=== PATIENT | male | born 1980 | race Caucasian/White ===

== ENCOUNTER 2017-06-13 23:00 | Emergency (ER) | payer BC, OTHER ==
[2017-06-13 23:14] VITALS: BP 135/87
--- NOTE | 2017-06-14 01:03 | EDM.PDOC ---
ED HPI GENERAL MEDICAL PROBLEM - General Chief Complaint: Gastrointestinal Problem Stated Complaint: STOMACH PAIN/DIARRHEA Time Seen by Provider: 06/13/17 23:23 Source of Information: Reports: Patient, RN Notes Reviewed - History of Present Illness INITIAL COMMENTS - FREE TEXT/NARRATIVE: 37-year-old male had onset of severe diarrhea this past morning about 10 hours ago. Continues all afternoon and evening. Diarrhea is watery, severe, repetitive. No nausea or vomiting, mild intermittent abdominal discomfort but nothing severe. He was prescribed an antibiotic yesterday for cough fever chills. The cough for about 4-5 days. Fever and chills the last couple of days. Cough was somewhat productive but today has been totally nonproductive. The fever and chills are gone. He had 2 courses of doxycycline yesterday and also 2 doses today. Right Hip Pain Score (Numeric/FACES): 5 - Related Data Allergies Allergy/AdvReac Type Severity Reaction Status Date / Time No Known Allergies Allergy Verified 11/26/14 15:50 Home Meds: Home Meds Doxycycline [Doxycycline Hyclate] 100 mg PO BID 06/13/17 [History] Pseudoephedrine HCl [Sudafed] 60 mg PO DAILY 06/13/17 [History] guaiFENesin/Codeine Phosphate [Cheratussin AC Syrup] 5 ml PO Q4H 06/13/17 [ History] Past Medical History Endocrine/Metabolic History: Reports: Obesity/BMI 30+ Social & Family History - Family History Family Medical History: Noncontributory - Tobacco Use Smoking Status *Q: Never Smoker Years of Tobacco use: 17 Packs/Tins Daily: 1 - Caffeine Use Caffeine Use: Reports: Coffee - Recreational Drug Use Recreational Drug Use: No ED ROS GENERAL - Review of Systems Review Of Systems: See Below Constitutional: Reports: Fever, Chills (Yesterday yesterday) HEENT: Reports: Rhinitis (Now better), Sinus Problem (Mild, improving there's been a lot of nasal and sinus congestion, some drainage), Throat Pain Respiratory: Reports: Cough, Sputum (Occasional, nonproductive today) Cardiovascular: Denies: Chest Pain GI/Abdominal: Reports: Abdominal Pain, Diarrhea (Frequent watery). Denies: Nausea, Vomiting Musculoskeletal: Reports: Other Skin: Denies: Rash (There is been some achiness) Neurological: Reports: Headache (Gone) ED EXAM, GI/ABD - Physical Exam Exam: See Below General Appearance: Alert, No Apparent Distress Eyes: Bilateral: Normal Appearance Nose: Normal Inspection Throat/Mouth: Normal Inspection, Normal Oropharynx Head: No: Facial Swelling Neck: Supple, Full Range of Motion Respiratory/Chest: No Respiratory Distress, Lungs Clear, Normal Breath Sounds. No: Rhonchi, Wheezing Cardiovascular: Regular Rate, Rhythm GI/Abdominal Exam: Soft, Non-Tender. No: Guarding Back Exam: Normal Inspection Extremities: Normal Inspection Neurological: Alert, Oriented, No Motor/Sensory Deficits Skin Exam: Warm, Dry, Normal Color Course - Vital Signs Last Recorded V/S: Last Vital Signs Temp 97.6 F 06/13/17 23:11 Pulse 96 06/13/17 23:11 Resp 18 06/13/17 23:11 BP 135/87 06/13/17 23:11 Pulse Ox 96 06/13/17 23:11 - Orders/Labs/Meds Orders: Active Orders 24 hr Category Date Time Status Chest 1V Frontal [CR] Stat Exams 06/13/17 23:46 Taken Departure - Departure Time of Disposition: 01:01 Disposition: Home, Self-Care 01 Condition: Fair Clinical Impression: Diarrhea - Discharge Information Instructions: Diarrhea, Adult, [id number] Referrals: PCP,None [Primary Care Provider] - Forms: ED Department Discharge Additional Instructions: Stop the doxycycline, Clear liquids until tomorrow evening, then very careful bland diet as tolerated, begin probiotic as soon as possible, that is available OTC any grocery store, [facility] or pharmacy. Take that 3 times daily for about 1 week. Avoid milk and dairy products for at least several days. Follow-up clinic if not getting back to normal by early next week, return to ED as needed if symptoms worsening in any way - My Orders Last 24 Hours: My Active Orders 06/13/17 23:46 Chest 1V Frontal [CR] Stat - Assessment/Plan Last 24 Hours: My Active Orders 06/13/17 23:46 Chest 1V Frontal [CR] Stat
--- NOTE | 2017-06-14 10:16 | CR ---
Chest: Frontal view of the chest was obtained. Comparison: Prior chest x-ray of 11/19/09. Heart size and mediastinum are normal. Lungs are clear. Old healed left clavicle fracture is incidentally noted. Impression: 1. Nothing acute is identified on frontal chest x-ray. Diagnostic code #2
== END 2017-06-14 01:08 | disposition home or self-care (01) ==
LOC: JD.ED 23:00
DX: R19.7 Diarrhea, unspecified (principal); Z79.899 Other long term (current) drug therapy
CPT/HCPCS: 71045; 71045-26; 87804; 99283; 99284

== ENCOUNTER 2017-09-10 08:03 | Emergency (ER) | payer BC, OTHER ==
[2017-09-10] MEDS ORDERED: Ibuprofen 600 MG Tab PO ONE (09:51)
--- NOTE | 2017-09-10 10:13 | EDM.PDOC ---
ED HPI GENERAL MEDICAL PROBLEM - General Chief Complaint: Fever Stated Complaint: SORE THROAT/FEVER Time Seen by Provider: 09/10/17 08:30 Source of Information: Reports: Patient History Limitations: Reports: No Limitations - History of Present Illness INITIAL COMMENTS - FREE TEXT/NARRATIVE: The patient presents with a fever and sore throat. He says this all started about 3 days ago. He spiked a fever or 105. He also has a headache. He denies ear pain, cough, chest pain, shortness of breath, abdominal pain, nausea or vomiting. Onset: Gradual Duration: Day(s): Location: Reports: Other (Throat) Quality: Reports: Sharp Severity: Moderate Worsens with: Reports: Other (Swallowing) Associated Symptoms: Reports: Fever/Chills, Headaches. 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 Headache Pain Score (Numeric/FACES): 8 - Related Data Allergies Allergy/AdvReac Type Severity Reaction Status Date / Time No Known Allergies Allergy Verified 09/10/17 08:12 Home Meds: Home Meds Amoxicillin 1,000 mg PO BID #40 tab 09/10/17 [Rx] Past Medical History - Past Health History Medical/Surgical History: Denies Medical/Surgical History Endocrine/Metabolic History: Reports: Obesity/BMI 30+ Social & Family History - Family History Family Medical History: Noncontributory - Caffeine Use Caffeine Use: Reports: Coffee, Energy Drinks, Soda - Recreational Drug Use Recreational Drug Use: No ED ROS ENT - Review of Systems Review Of Systems: See Below Constitutional: Reports: Fever, Chills HEENT: Reports: Throat Pain Respiratory: Reports: No Symptoms Cardiovascular: Reports: No Symptoms Endocrine: Reports: No Symptoms GI/Abdominal: Reports: No Symptoms : Reports: No Symptoms Musculoskeletal: Reports: No Symptoms Skin: Reports: No Symptoms Neurological: Reports: No Symptoms ED EXAM, ENT - Physical Exam Exam: See Below Exam Limited By: No Limitations General Appearance: Alert, No Apparent Distress Ears: Normal External Exam Nose: Normal Inspection Mouth/Throat: Pharyngeal Erythema, Tonsillar Erythema, Tonsillar Exudates, Tonsillar Swelling Head: Atraumatic, Normocephalic Neck: Lymphadenopathy (L), Lymphadenopathy (R) Respiratory/Chest: No Respiratory Distress, Lungs Clear, Normal Breath Sounds Cardiovascular: Regular Rate, Rhythm, No Edema, No Murmur GI/Abdominal: Soft, Non-Tender, No Organomegaly, No Mass Extremities: Normal Inspection Course - Vital Signs Last Recorded V/S: Last Vital Signs Temp 98.5 F 09/10/17 08:13 Pulse 80 09/10/17 08:13 Resp 20 09/10/17 08:13 BP 136/91 H 09/10/17 08:13 Pulse Ox 98 09/10/17 08:13 - Orders/Labs/Meds Orders: Active Orders 24 hr Category Date Time Status CULTURE STREP A CONFIRMATION [RM] Stat Lab 09/10/17 08:38 Results STREP SCRN A RAPID W CULT CONF [RM] Stat Lab 09/10/17 08:38 Ordered Labs: Laboratory Tests 09/10/17 Range/Units 09:10 Monoscreen Negative (NEGATIVE) Meds: Medications Discontinued Medications Generic Name Dose Route Start Last Admin Trade Name Farhanq PRN Reason Stop Dose Admin Ibuprofen 600 mg 09/10/17 09:51 09/10/17 09:54 Motrin PO 09/10/17 09:52 600 mg ONETIME ONE Administration - Re-Assessments/Exams Free Text/Narrative Re-Assessment/Exam: 09/10/17 10:11 His rapid strep was negative. I then ordered a mono that was negative. I am going to treat him with and antibiotic. Departure - Departure Time of Disposition: 10:15 Disposition: Home, Self-Care 01 Condition: Good Clinical Impression: Acute bacterial tonsillitis - Discharge Information *PRESCRIPTION DRUG MONITORING PROGRAM REVIEWED*: Not Applicable *COPY OF PRESCRIPTION DRUG MONITORING REPORT IN PATIENT QUYNH: Not Applicable Prescriptions: Amoxicillin 1,000 mg PO BID #40 tab Referrals: Ella Clemons, CHECK TOTALER [Primary Care Provider] - Additional Instructions: Take motrin or tylenol for pain and fever. Drink plenty of fluids. You may try some chlorseptic spray or throat lozenges. You may also try gargling with some salt water. Please return if you are worse. - My Orders Last 24 Hours: My Active Orders 09/10/17 08:38 CULTURE STREP A CONFIRMATION [RM] Stat STREP SCRN A RAPID W CULT CONF [RM] Stat - Assessment/Plan Last 24 Hours: My Active Orders 09/10/17 08:38 CULTURE STREP A CONFIRMATION [RM] Stat STREP SCRN A RAPID W CULT CONF [RM] Stat
[2017-09-10 11:10] VITALS: BP 132/82
== END 2017-09-10 10:26 | disposition home or self-care (01) ==
LOC: JD.ED 08:03
DX: J03.80 Acute tonsillitis due to other specified organisms (principal); B96.89 Other specified bacterial agents as the cause of diseases classified elsewhere
CPT/HCPCS: 36415; 86308; 87081; 87430; 99283; A9270

== ENCOUNTER 2019-06-29 13:01 | Emergency (ER) | payer BC, OTHER ==
[2019-06-29 13:11] VITALS: BP 129/89; PULSE 76
[2019-06-29] MEDS ORDERED: Lidocaine 1% 10 ML MDV INJECT ONE (13:19)
[2019-06-29] MEDS ORDERED: Diphtheria,Pertussis(Acell),Tetanus Vaccine 0.5 ML Syringe ONE (13:21)
[2019-06-29] MEDS ORDERED: Diphtheria,Pertussis(Acell),Tetanus Vaccine 0.5 ML Syringe IM ONE (13:22)
--- NOTE | 2019-06-29 13:24 | EDM.PDOC ---
ED HPI GENERAL MEDICAL PROBLEM - General Chief Complaint: Laceration Stated Complaint: R ARM LAC Time Seen by Provider: 06/29/19 13:06 Source of Information: Reports: Patient, RN Notes Reviewed History Limitations: Reports: No Limitations - History of Present Illness INITIAL COMMENTS - FREE TEXT/NARRATIVE: Patient is a 39-year-old male who presents to the ED for the evaluation of a right arm laceration. Patient notes he was using a boning knife at home, when he accidentally stabbed himself in the right anterior forearm, this resulted in a 1 cm linear laceration. There is not a lot of bleeding at the time of puncture, and states that there is not a lot of bleeding yet now. There is a little bit of swelling and bruising around the site. Patient notes he is left- hand dominant. He denies any numbness and tingling distal to the injury, and can still move his fingers in all range of motion along with his wrist. Patient states that flexion of the wrist is somewhat difficult due to the pain in his forearm, but he can flex the wrist nonetheless. Patient states that he does not know the last time he had a tetanus vaccination. Right Arm Pain Score (Numeric/FACES): 6 - Related Data Allergies Allergy/AdvReac Type Severity Reaction Status Date / Time No Known Allergies Allergy Verified 06/29/19 13:06 Home Meds: Home Meds . [No Known Home Meds] 06/29/19 [History] Past Medical History - Past Health History Medical/Surgical History: Denies Medical/Surgical History Endocrine/Metabolic History: Reports: Obesity/BMI 30+ Social & Family History - Family History Family Medical History: Noncontributory - Tobacco Use Smoking Status *Q: Never Smoker Second Hand Smoke Exposure: No - Caffeine Use Caffeine Use: Reports: Coffee, Energy Drinks, Soda - Recreational Drug Use Recreational Drug Use: No ED ROS GENERAL - Review of Systems Review Of Systems: Comprehensive ROS is negative, except as noted in HPI. ED EXAM, SKIN/RASH Exam: See Below Exam Limited By: No Limitations General Appearance: Alert, WD/WN, No Apparent Distress Respiratory/Chest: No Respiratory Distress, Lungs Clear, Normal Breath Sounds, No Accessory Muscle Use, Chest Non-Tender Cardiovascular: Normal Peripheral Pulses, Regular Rate, Rhythm, No Murmur Peripheral Pulses: 3+: Radial (L), Radial (R) Extremities: Normal Inspection (with exception of laceration to R anterior forearm (see skin assessment for detail)), Normal Range of Motion, Normal Capillary Refill Neurological: Alert, Oriented, Normal Cognition, No Motor/Sensory Deficits Psychiatric: Normal Affect, Normal Mood Skin: Warm, Dry, Normal Color, No Rash, Wound/Incision (1 cm linear laceration to R anterior forearm about midway between wrist and elbow joint) ED SKIN PROCEDURES - Laceration/Wound Repair Right Lower Mid-Anterior Arm Appearance: Superficial, Linear Distal NVT: Neuro & Vascular Intact, No Tendon Injury Anesthetic Type: Local Local Anesthesia - Lidocaine (Xylocaine): 1% Plain Local Anesthetic Volume: 5cc Skin Prep: Chlorhexidine (Hibiciens), Saline Exploration/Debridement/Repair: Wound Explored, In a Bloodless Field, Explored to Base, No Foreign Material Found Closed with: Sutures Lac/Wound length In cm: 1 Suture Size: 4-0 # of Sutures: 5 Suture Type: Prolene, Interrupted, Simple Sterile Dressing Applied: Nurse Tetanus Status Addressed: Yes (updated at today's visit) Complications: No Course - Vital Signs Last Recorded V/S: Last Vital Signs Temp 98.4 F 06/29/19 13:07 Pulse 76 06/29/19 13:07 Resp 16 06/29/19 13:07 BP 129/89 06/29/19 13:07 Pulse Ox 98 06/29/19 13:07 - Orders/Labs/Meds Orders: Active Orders 24 hr Category Date Time Status Vaccines to be Administered [RC] PER UNIT ROUTINE Care 06/29/19 13:22 Ordered Meds: Medications Discontinued Medications Generic Name Dose Route Start Last Admin Trade Name Mari PRN Reason Stop Dose Admin Diphtheria/Tetanus/Acell Pertussis 0.5 ml 06/29/19 13:22 06/29/19 13:24 Adacel IM 06/29/19 13:23 0.5 ml .ONCE ONE Administration Diphtheria/Tetanus/Acell Pertussis Confirm 06/29/19 13:21 Adacel Administered 06/29/19 13:22 Dose 0.5 ml .ROUTE .STK-MED ONE Lidocaine HCl 10 ml 06/29/19 13:19 06/29/19 13:24 Xylocaine 1% INJECT 06/29/19 13:20 10 ml ONETIME ONE Administration Departure - Departure Time of Disposition: 13:28 Disposition: Home, Self-Care 01 Condition: Good Clinical Impression: Forearm laceration Qualifiers: Encounter type: initial encounter Laterality: right Qualified Code(s): S51.811A - Laceration without foreign body of right forearm, initial encounter - Discharge Information *PRESCRIPTION DRUG MONITORING PROGRAM REVIEWED*: No *COPY OF PRESCRIPTION DRUG MONITORING REPORT IN PATIENT QUYNH: No Instructions: Sutured Wound Care, [id number] Referrals: PCP,None [Primary Care Provider] - Forms: ED Department Discharge Additional Instructions: You have been evaluated in the ED for your laceration. Sutures will need to stay in for 10-14 days (07/08-07/11). Your tetanus booster was updated at today's visit. You may return to the ED or any clinic for removal. Please keep this area clean and dry, you may cleanse with regular soap and water. No vigorous scrubbing. Watch out for signs of infection like increased redness, swelling, pain at the laceration site, or if you should develop any fevers or chills. Do not be surprised if there is a little more bruising, as boning knives are very sharp and you very well could have knicked a little bit of the muscles in the forearm. Please return to ED if your symptoms change or worsen. Sepsis Event Note - Evaluation Sepsis Screening Result: No Definite Risk - Focused Exam Vital Signs: Vital Signs Temp Pulse Resp BP Pulse Ox 06/29/19 13:07 98.4 F 76 16 129/89 98 Date Exam was Performed: 06/29/19 Time Exam was Performed: 13:53 - My Orders Last 24 Hours: My Active Orders 06/29/19 13:22 Vaccines to be Administered [RC] PER UNIT ROUTINE - Assessment/Plan Last 24 Hours: My Active Orders 06/29/19 13:22 Vaccines to be Administered [RC] PER UNIT ROUTINE
== END 2019-06-29 14:07 | disposition home or self-care (01) ==
LOC: JD.ED 13:01
DX: S51.811A Laceration without foreign body of right forearm, initial encounter (principal); E66.9 Obesity, unspecified; Z23 Encounter for immunization; Z68.42 Body mass index [BMI] 45.0-49.9, adult; W26.0XXA Contact with knife, initial encounter; Y92.009 Unspecified place in unspecified non-institutional (private) residence as the place of occurrence of the external cause
CPT/HCPCS: 12001; 90471; 90715; 99282; J2001

== ENCOUNTER 2021-01-12 09:09 | Emergency (ER) | payer OTHER ==
[2021-01-12 09:21] VITALS: BP 146/87; PULSE 74
--- NOTE | 2021-01-12 09:41 | EDM.PDOC ---
ED HPI GENERAL MEDICAL PROBLEM - General Chief Complaint: Chest Pain Stated Complaint: CHEST PAIN Time Seen by Provider: 01/12/21 09:22 Source of Information: Reports: Patient History Limitations: Reports: No Limitations - History of Present Illness INITIAL COMMENTS - FREE TEXT/NARRATIVE: The patient presents with a cough and congestion. He said a couple days ago he started having a headache and cough. The headache is gone. He has some chest tightness with the cough. He has no fever, chills or shortness of breath. He has no abdominal pain, nausea or vomiting. He has not lost his sense of taste or smell. He has no history of asthma or COPD. He does not smoke. He has not been around anyone with COVID. He does not want to be COVID tested. Onset: Gradual Duration: Day(s): (3) Location: Reports: Chest Quality: Reports: Other (tightness) Severity: Mild Improves with: Reports: None Worsens with: Reports: None Associated Symptoms: Reports: Chest Pain, Cough, Headaches. Denies: Fever/Chills, Nausea/Vomiting, Shortness of Breath Chest Pain Score (Numeric/FACES): 5 - Related Data Allergies Allergy/AdvReac Type Severity Reaction Status Date / Time No Known Allergies Allergy Verified 01/12/21 09:21 Home Meds: Home Meds Azithromycin [Zithromax] 250 mg PO DAILY #6 tab 01/12/21 [Rx] Codeine/Promethazine [Phenergan with Codeine] 5 - 10 ml PO Q6HR PRN #300 ml 01/12/21 [Rx] Past Medical History - Past Health History Medical/Surgical History: Denies Medical/Surgical History Endocrine/Metabolic History: Reports: Obesity/BMI 30+ Social & Family History - Family History Family Medical History: No Pertinent Family History - Tobacco Use Tobacco Use Status *Q: Never Tobacco User - Caffeine Use Caffeine Use: Reports: Coffee, Energy Drinks, Soda ED ROS GENERAL - Review of Systems Review Of Systems: See Below Constitutional: Reports: No Symptoms HEENT: Reports: No Symptoms Respiratory: Reports: Cough. Denies: Shortness of Breath Cardiovascular: Reports: Chest Pain (Tightness) Endocrine: Reports: No Symptoms GI/Abdominal: Reports: No Symptoms ED EXAM, GENERAL - Physical Exam Exam: See Below Exam Limited By: No Limitations General Appearance: Alert, No Apparent Distress Ears: Normal External Exam Nose: Normal Inspection Head: Atraumatic, Normocephalic Neck: Normal Inspection Respiratory/Chest: No Respiratory Distress, Decreased Breath Sounds Cardiovascular: Regular Rate, Rhythm, No Edema, No Murmur GI/Abdominal: Soft, Non-Tender, No Organomegaly, No Mass Back Exam: Normal Inspection Extremities: Normal Inspection #1 Interpretation EKG Date: 01/12/21 Time: 09:26 Rhythm: NSR Rate (Beats/Min): 74 Cable: LAD-Left Cable Deviation P-Wave: Present QRS: Normal ST-T: Normal QT: Normal EKG Interpretation Comments: Q waves in the anterior leads Course - Vital Signs Last Recorded V/S: Last Vital Signs Temp 97.6 F 01/12/21 09:17 Pulse 74 01/12/21 09:17 Resp 16 01/12/21 09:17 BP 146/87 H 01/12/21 09:17 Pulse Ox 95 01/12/21 09:17 - Orders/Labs/Meds Orders: Active Orders 24 hr Category Date Time Status Cardiac Monitoring [RC] . DIRECTED Care 01/12/21 09:35 Active EKG 12 Lead [EK] Stat Ther 01/12/21 09:42 Ordered Labs: Laboratory Tests 01/12/21 01/12/21 Range/Units 09:54 09:54 WBC 4.81 (4.23-9.07) K/mm3 RBC 6.03 (4.63-6.08) M/mm3 Hgb 16.5 (13.7-17.5) gm/dl Hct 49.6 (40.1-51.0) % MCV 82.3 D (79.0-92.2) fl MCH 27.4 (25.7-32.2) pg MCHC 33.3 (32.2-35.5) g/dl RDW Std Deviation 41.3 (35.1-43.9) fL Plt Count 173 (163-337) K/mm3 MPV 10.4 (9.4-12.3) fl Neut % (Auto) 51.5 (34.0-67.9) % Lymph % (Auto) 24.7 (21.8-53.1) % [place] % (Auto) 21.0 H (5.3-12.2) % Eos % (Auto) 0.8 (0.8-7.0) Baso % (Auto) 1.0 (0.1-1.2) % Neut # (Auto) 2.47 (1.78-5.38) K/mm3 Lymph # (Auto) 1.19 L (1.32-3.57) K/mm3 [place] # (Auto) 1.01 H (0.30-0.82) K/mm3 Eos # (Auto) 0.04 (0.04-0.54) K/mm3 Baso # (Auto) 0.05 (0.01-0.08) K/mm3 Sodium 143 (136-145) mEq/L Potassium 4.4 (3.5-5.1) mEq/L Chloride 105 (98-107) mEq/L Carbon Dioxide 27 (21-32) mEq/L Anion Gap 15.4 H (5-15) BUN 12 (7-18) mg/dL Creatinine 1.4 H (0.7-1.3) mg/dL Est Cr Clr Drug Dosing 75.45 mL/min Estimated GFR (MDRD) 56 (>60) mL/min BUN/Creatinine Ratio 8.6 L (14-18) Glucose 105 H (70-99) mg/dL Calcium 8.3 L (8.5-10.1) mg/dL Total Bilirubin 0.4 (0.2-1.0) mg/dL AST 24 (15-37) U/L ALT 60 (16-63) U/L Alkaline Phosphatase 91 (46-116) U/L C-Reactive Protein <0.2 (<1.0) mg/dL Total Protein 6.9 (6.4-8.2) g/dl Albumin 3.9 (3.4-5.0) g/dl Globulin 3.0 gm/dL Albumin/Globulin Ratio 1.3 (1-2) - Re-Assessments/Exams Free Text/Narrative Re-Assessment/Exam: 01/12/21 09:41 I ordered a CXR and labs. 01/12/21 11:01 His CXR looks good. His CBC looks good. His creatinine is slightly elevated at 1.4. His CRP is normal. I feel he has bronchitis. I will get him on some zithromax and phenergan with codeine for the cough. Departure - Departure Time of Disposition: 11:05 Disposition: Home, Self-Care 01 Condition: Good Clinical Impression: Bronchitis Prescriptions: Codeine/Promethazine [Phenergan with Codeine] 5 - 10 ml PO Q6HR PRN #300 ml PRN Reason: Cough Azithromycin [Zithromax] 250 mg PO DAILY #6 tab Referrals: PCP,None [Primary Care Provider] - Forms: ED Department Discharge Additional Instructions: Take the azithromycin 2 pills on day 1 and 1 pill on day 2 through 5. Take the phenergan with codeine 5 to 10mls every 6 hours as needed for the cough. Please return if you are worse. Sepsis Event Note (ED) - Evaluation Sepsis Screening Result: No Definite Risk - Focused Exam Vital Signs: Vital Signs Temp Pulse Resp BP Pulse Ox 01/12/21 09:17 97.6 F 74 16 146/87 H 95 - My Orders Last 24 Hours: My Active Orders 01/12/21 09:35 Cardiac Monitoring [RC] . DIRECTED 01/12/21 09:42 EKG 12 Lead [EK] Stat - Assessment/Plan Last 24 Hours: My Active Orders 01/12/21 09:35 Cardiac Monitoring [RC] . DIRECTED 01/12/21 09:42 EKG 12 Lead [EK] Stat
--- NOTE | 2021-01-12 10:09 | CR ---
Chest: PA and lateral views of the chest were obtained. Comparison: Prior chest x-ray of 11/19/09 and 06/14/17. Heart size and mediastinum are normal. Lungs are clear with no acute parenchymal change. Bony structures appear within normal limits for the patient's age. Old healed left clavicle fracture is noted. Impression: 1. Nothing acute is seen on 2 view chest x-ray. Diagnostic code #1
== END 2021-01-12 11:16 | disposition home or self-care (01) ==
LOC: JD.ED 09:09
DX: J40 Bronchitis, not specified as acute or chronic (principal); E66.9 Obesity, unspecified; Z68.42 Body mass index [BMI] 45.0-49.9, adult
CPT/HCPCS: 36415; 71046; 71046-26; 80053; 85025; 86140; 93005; 99284-25

== ENCOUNTER 2021-05-18 10:59 | Emergency (ER) | payer OTHER ==
[2021-05-18 11:10] VITALS: BP 153/95; PULSE 81
== END 2021-05-18 11:54 | disposition home or self-care (01) ==
LOC: JD.ED 10:59
DX: J02.9 Acute pharyngitis, unspecified (principal); E66.9 Obesity, unspecified; Z68.42 Body mass index [BMI] 45.0-49.9, adult; Z72.0 Tobacco use
CPT/HCPCS: 87651-QW; 99283

== ENCOUNTER 2021-06-22 07:28 | Emergency (ER) | payer OTHER ==
[2021-06-22 07:53] VITALS: BP 143/77; PULSE 78
[2021-06-22] MEDS ORDERED: Ibuprofen 800 MG Tab PO ONE (08:32)
== END 2021-06-22 10:12 | disposition home or self-care (01) ==
LOC: JD.ED 07:28
DX: S52.592A Other fractures of lower end of left radius, initial encounter for closed fracture (principal); R60.0 Localized edema; E66.9 Obesity, unspecified; Z68.42 Body mass index [BMI] 45.0-49.9, adult; Z86.16 Personal history of COVID-19; W18.09XA Striking against other object with subsequent fall, initial encounter
CPT/HCPCS: 73110; 73140; 99283; A9270

== ENCOUNTER 2022-01-11 15:49 | Emergency (ER) | payer OTHER ==
[2022-01-11 17:00] VITALS: BP 125/73; PULSE 74
[2022-01-11] MEDS ORDERED: Ketorolac 60 MG/2 ML SDV IM ONE (17:35)
[2022-01-11] MEDS ORDERED: predniSONE 20 MG Tab PO ONE (17:36)
== END 2022-01-11 19:30 | disposition critical access hospital (66) ==
LOC: JD.ED 15:49
DX: M77.11 Lateral epicondylitis, right elbow (principal); M79.672 Pain in left foot; E66.9 Obesity, unspecified; Z68.42 Body mass index [BMI] 45.0-49.9, adult; Z86.16 Personal history of COVID-19
CPT/HCPCS: 73080; 73630; 96372; 99283; J1885; J7512

== ENCOUNTER 2022-03-19 20:39 | Emergency (ER) | payer BC, OTHER ==
[2022-03-19 22:52] VITALS: BP 109/56; PULSE 68
== END 2022-03-19 22:54 | disposition home or self-care (01) ==
LOC: JD.ED 20:39
DX: I80.02 Phlebitis and thrombophlebitis of superficial vessels of left lower extremity (principal); E66.9 Obesity, unspecified; Z68.43 Body mass index [BMI] 50.0-59.9, adult; Z72.0 Tobacco use
CPT/HCPCS: 93971-26-LT; 93971-LT; 99283

== ENCOUNTER 2022-04-08 17:40 | Emergency (ER) | payer BC ==
[2022-04-08 18:07] VITALS: BP 148/75; PULSE 77
== END 2022-04-08 21:25 | disposition home or self-care (01) ==
LOC: JD.ED 17:40
DX: I80.02 Phlebitis and thrombophlebitis of superficial vessels of left lower extremity (principal); E66.9 Obesity, unspecified; Z68.30 Body mass index [BMI] 30.0-30.9, adult; Z86.16 Personal history of COVID-19
CPT/HCPCS: 93971-26-LT; 93971-LT; 99283

== ENCOUNTER 2022-04-10 23:33 | Emergency (ER) | payer BC ==
[2022-04-11] MEDS ORDERED: Acetaminophen 325 MG Tab PO ONE (00:26)
[2022-04-11 02:23] VITALS: BP 123/80; PULSE 63
== END 2022-04-11 02:18 | disposition home or self-care (01) ==
LOC: JD.ED 23:33
DX: R07.89 Other chest pain (principal); F17.220 Nicotine dependence, chewing tobacco, uncomplicated; E66.9 Obesity, unspecified; Z68.42 Body mass index [BMI] 45.0-49.9, adult
CPT/HCPCS: 36415; 71045; 80053; 83880; 84484; 85025; 93005; 99285; A9270; 93010; 99284

== ENCOUNTER 2024-05-14 22:04 | Emergency (ER) | payer BC ==
[2024-05-14] MEDS: Apixaban 5 MG Tab PO ONE (23:57)
[2024-05-15 00:19] VITALS: BP 159/78; PULSE 78
== END 2024-05-15 00:17 | disposition home or self-care (01) ==
LOC: JD.ED 22:04
DX: I80.02 Phlebitis and thrombophlebitis of superficial vessels of left lower extremity (principal); E66.9 Obesity, unspecified; Z86.16 Personal history of COVID-19; Z68.42 Body mass index [BMI] 45.0-49.9, adult
CPT/HCPCS: 93970; 99283; A9270; 99284

== ENCOUNTER 2024-06-23 19:20 | Emergency (ER) | payer BC ==
[2024-06-23] MEDS ORDERED: Naloxone 0.4 MG/ML SDV IVPUSH PRN (19:54)
[2024-06-23 20:03] LABS: BASOPHILS ABSOLUTE AUTO 0.1 K/mm3 (0.0-0.2); BASOPHILS PERCENT AUTO 0.8 % (0.0-1.0); EOSINOPHILS ABSOLUTE AUTO 0.2 K/mm3 (0.0-0.4); EOSINOPHILS PERCENT AUTO 2.3 % (0.0-6.0); HEMATOCRIT 49.1 % (42.0-52.0); HEMOGLOBIN 16.5 gm/dl (14.0-18.0); IMMATURE GRAN ABSOLUTE AUTO 0.07 K/mm3 (0.00-0.05); IMMATURE GRAN PERCENT AUTO 0.7 % (0.0-0.4); LYMPHOCYTES ABSOLUTE AUTO 2.7 K/mm3 (1.0-4.8); LYMPHOCYTES PERCENT AUTO 25.7 % (24.0-44.0); MEAN CORPUSCULAR HEMOGLOBIN 27.6 pg (28.0-32.0); MEAN CORPUSCULAR HGB CONC 33.6 g/dl (32.0-36.0); MEAN CORPUSCULAR VOLUME 82.2 fl (83.0-99.0); MEAN PLATELET VOLUME 10.7 fl (9.4-12.4); MONOCYTES PERCENT AUTO 9.8 % (0.0-8.0); NEUTROPHILS ABSOLUTE AUTO 6.4 K/mm3 (1.8-7.7); NEUTROPHILS PERCENT AUTO 60.7 % (41.0-71.0); PLATELET COUNT,PLT 220 K/mm3 (150-400); RED BLOOD CELL COUNT 5.97 M/mm3 (4.52-5.90); WHITE BLOOD CELL COUNT,WBC 10.61 K/mm3 (3.9-11.3)
[2024-06-23] MEDS: Aspirin 81 MG Tab.Chew PO ONE (20:07)
[2024-06-23 20:22] LABS: A/G RATIO 1.2 (1-2); ALBUMIN 3.7 g/dl (3.4-5.0); ANION GAP 9.8 (5-15); BILIRUBIN TOTAL 0.4 mg/dL (0.2-1.0); BUN/CREATININE RATIO 12.5 (14-18); CALCIUM 8.7 mg/dL (8.5-10.1); CREATININE 1.2 mg/dL (0.7-1.3); EST CRCL DRUG DOSING (CG) 84.54 mL/min; POTASSIUM,K 3.8 mEq/L (3.5-5.1); PROTEIN TOTAL,TP 6.9 g/dl (6.4-8.2)
[2024-06-23] MEDS: Sodium Chloride 0.9% 1,000 ML IV ONE (20:44)
[2024-06-23] MEDS: Morphine 2 MG/ML SYRINGE IVPUSH ONE (20:45)
[2024-06-23] MEDS: Iopamidol 755 Mg/ML 100 ML Bottle IVPUSH ONE (21:00)
[2024-06-23] MEDS: Sodium Chloride 0.9% 100 ML IV SCH (21:00)
[2024-06-23 22:47] VITALS: BP 117/62; PULSE 61
== END 2024-06-23 22:40 | disposition home or self-care (01) ==
LOC: JD.ED 19:20
DX: R07.89 Other chest pain (principal); E66.9 Obesity, unspecified; F17.200 Nicotine dependence, unspecified, uncomplicated; Z68.42 Body mass index [BMI] 45.0-49.9, adult; Z86.16 Personal history of COVID-19; Z79.01 Long term (current) use of anticoagulants; Z79.899 Other long term (current) drug therapy
CPT/HCPCS: 36415; 71045; 71275; 80053; 84484; 85025; 87428; 93005; 96360; 96361; 99285; A9270; J7030; Q9967; 93010; 99284

== ENCOUNTER 2024-09-20 23:16 | Emergency (ER) | payer BC ==
[2024-09-21] MEDS ORDERED: Sodium Chloride 0.9% 10 ML Syringe FLUSH PRN (00:01)
[2024-09-21] MEDS: Ketorolac 30 MG/ML SDV IVPUSH ONE (00:50)
[2024-09-21 00:54] LABS: BASOPHILS ABSOLUTE AUTO 0.1 K/mm3 (0.0-0.2); BASOPHILS PERCENT AUTO 1.0 % (0.0-1.0); EOSINOPHILS ABSOLUTE AUTO 0.2 K/mm3 (0.0-0.4); EOSINOPHILS PERCENT AUTO 2.0 % (0.0-6.0); IMMATURE GRAN ABSOLUTE AUTO 0.09 K/mm3 (0.00-0.05); IMMATURE GRAN PERCENT AUTO 1.0 % (0.0-0.4); LYMPHOCYTES ABSOLUTE AUTO 3.0 K/mm3 (1.0-4.8); LYMPHOCYTES PERCENT AUTO 32.3 % (24.0-44.0); MEAN PLATELET VOLUME 10.4 fl (9.4-12.4); MONOCYTES ABSOLUTE AUTO 0.7 K/mm3 (0.0-0.8); MONOCYTES PERCENT AUTO 7.3 % (0.0-8.0); NEUTROPHILS ABSOLUTE AUTO 5.2 K/mm3 (1.8-7.7); NEUTROPHILS PERCENT AUTO 56.4 % (41.0-71.0); NRBC ABSOLUTE 0.00 (0.00-0.02); NRBC PERCENT 0.0 % (0.0-0.2); PLATELET COUNT,PLT 216 K/mm3 (150-400); RED BLOOD CELL COUNT 5.84 M/mm3 (4.52-5.90); WHITE BLOOD CELL COUNT,WBC 9.16 K/mm3 (3.9-11.3)
[2024-09-21 01:15] LABS: A/G RATIO 1.1 (1-2); ALANINE AMINOTRANSFERASE,ALT 41 U/L (16-63); ASPARTATE AMNIOTRANSFERASE,AST 24 U/L (15-37); BILIRUBIN TOTAL 0.5 mg/dL (0.2-1.0); BLOOD UREA NITROGEN,BUN 16 mg/dL (7-18); CARBON DIOXIDE,CO2 30 mEq/L (21-32); CHLORIDE,CL 107 mEq/L (98-107); CREATININE 1.2 mg/dL (0.7-1.3); EST CRCL DRUG DOSING (CG) 89.70 mL/min; ESTIMATED GFR 77 mL/min (>60); GLUCOSE RANDOM 104 mg/dL (70-99); POTASSIUM,K 4.1 mEq/L (3.5-5.1); PROTEIN TOTAL,TP 6.7 g/dl (6.4-8.2); SODIUM,NA 143 mEq/L (136-145)
[2024-09-21 02:36] VITALS: BP 151/105; PULSE 64
== END 2024-09-21 01:55 | disposition home or self-care (01) ==
LOC: JD.ED 23:16
DX: M66.0 Rupture of popliteal cyst (principal); M25.562 Pain in left knee; E66.9 Obesity, unspecified; Z79.899 Other long term (current) drug therapy; Z86.16 Personal history of COVID-19; Z68.41 Body mass index [BMI] 40.0-44.9, adult
CPT/HCPCS: 36415; 73562; 80053; 84550; 85025; 85652; 86140; 93971; 96374; 96375; 99284; J1885; J2270